=== PATIENT | male | born 1980 | race Hispanic/Latino ===

== ENCOUNTER 2017-12-17 15:46 | Outpatient (CLI) | payer BC, OTHER | END 2017-12-17 15:47 | disposition home or self-care (01) | LOC: DTY/OP 15:46 | PROVIDERS: ATTEND Surgery | DX: I10 Essential (primary) hypertension (principal) | CPT/HCPCS: 97802 ==

== ENCOUNTER 2018-02-06 16:15 | Inpatient (IN) | payer BC ==
[2018-02-18] MEDS ORDERED: Bupivacaine/Epinephrine 0.25% 30 ML VIAL ONE (11:19)
[2018-02-18] MEDS ORDERED: CEFAZOLIN 2 GM/50 ML BAG ONE (11:35)
[2018-02-18] MEDS ORDERED: Heparin 5,000 UNITS/ML VIAL ONE (11:35)
[2018-02-18] MEDS ORDERED: Fentanyl 100 MCG/2 ML VIAL ONE ×4 (11:38→14:32)
--- NOTE | 2018-02-18 13:19 | OP ---
DATE OF PROCEDURE: 02/18/2018 PREOPERATIVE DIAGNOSES: 1. Morbid obesity with a body mass index of 46. 2. Hypertension. POSTOPERATIVE DIAGNOSES: 1. Morbid obesity with a body mass index of 46. 2. Hypertension. PROCEDURE PERFORMED: 1. Laparoscopic sleeve gastrectomy with Wilkinson staple line reinforcements and 38 Kinyarwanda bougie. 2. EGD. SURGEON: Clyde Banegas M.D. ANESTHESIA: General. ESTIMATED BLOOD LOSS: Minimal. COMPLICATIONS: None. SPECIMEN: Stomach. FINDINGS: Normal postoperative EGD. PROCEDURE IN DETAIL: The patient was taken to the operating room and placed supine on the table. Af ter general anesthetic was obtained, the arms and legs are double strapped to bariatric table. The a bdomen was shaved, prepped, and draped in a sterile fashion. Left subcostal 5-mm Optiview trocar was placed in the usual fashion under direct vision. High-flow pneumoperitoneum was obtained. Left and right abdominal 12-mm ports as well as a right subcostal 5-mm port were placed under direct visualiz ation. A 5 mm incision was made at the xiphoid and Florinda was used to raise the liver off the GE junction. Short gastrics are taken down from a distance of 6 cm proximal to the pylorus all the way to the left jessica of the diaphragm. Left jessica, posterior fundus, angle of His was all completely diss ected as are all posterior adhesions. OG tube was removed and a 38 bougie was brought in and its tip left in the antrum of the stomach. Multiple loads of an Luke stapling device used to form the sl eeve. The first was a green load fired up at a distance of 6 cm proximal to the pylorus. Multiple l oads were then fired up along the bougie, stomach is completely transected at the angle of His. The stomach was removed from the left abdominal incision. This fascial defect is closed using GraNee nee dle 0 Vicryl tie. All port sites are infiltrated using local anesthetic. EGD scope was passed into the esophagus, stomach to the level of the duodenum without obstruction or stricture. There is no ai r leakage or bleeding along the staple line. EGD scope was used to decompress the stomach, it was pu lled and removed. The Florinda retractor was removed under direct visualization without bleeding. There is no bleeding on the staple line. All ports are removed under direct visualization without bl eeding. Pneumoperitoneum was let down. The Vicryl was used to close the fascial defect from left ab dominal incisions. All incisions were irrigated and closed using 4-0 Monocryl and Dermabond. The pa tient was en route to recovery in stable condition. All instrument counts, needle counts, lap counts were correct.
[2018-02-18] MEDS ORDERED: Promethazine HCl 25 MG/ML VIAL IM PRN ×3 (13:27→16:29)
[2018-02-18] MEDS ORDERED: HYDROmorphone 2 MG/ML VIAL SLOW IVP PRN (13:27)
[2018-02-18] MEDS ORDERED: Ondansetron HCl/PF 4 MG/2 ML Vial IVP PRN (13:27)
[2018-02-18] MEDS ORDERED: Promethazine HCl 25 MG/ML VIAL SLOW IVP PRN (13:27)
[2018-02-18] MEDS ORDERED: Meperidine HCl/PF 25 MG/ML VIAL SLOW IVP PRN (13:27)
[2018-02-18] MEDS ORDERED: HYDROmorphone 2 MG/ML VIAL ONE (13:29)
[2018-02-18] MEDS ORDERED: Meperidine HCl/PF 25 MG/ML VIAL ONE (13:41)
[2018-02-18] MEDS ORDERED: Lidocaine 1% PF 5 ML VIAL ONE (13:49)
[2018-02-18] MEDS ORDERED: PROPOFOL 200 MG/20 ML VIAL ONE (13:49)
[2018-02-18] MEDS ORDERED: Dexamethasone 20 MG/5 ML VIAL ONE (13:49)
[2018-02-18] MEDS ORDERED: Glycopyrrolate 0.2 MG/ML 5 ML SYRINGE ONE (13:49)
[2018-02-18] MEDS ORDERED: Ondansetron PF 4 MG/2 ML Vial ONE (13:49)
[2018-02-18] MEDS ORDERED: Naloxone HCl 0.4 mg/ml Vial IV PRN (13:51)
[2018-02-18] MEDS ORDERED: Ondansetron PF 4 MG/2 ML Vial IVP PRN ×2 (13:51→16:29)
[2018-02-18] MEDS ORDERED: diphenhydrAMINE 50 MG/ML VIAL IVP PRN ×2 (13:51→16:29)
[2018-02-18] MEDS ORDERED: diphenhydrAMINE 50 MG/ML VIAL IM PRN (13:51)
[2018-02-18] MEDS ORDERED: diphenhydrAMINE 25 MG CAP PO PRN (13:51)
[2018-02-18] MEDS ORDERED: HYDROmorphone 10 mg/100 ml CADD IVPB PRN (13:51)
[2018-02-18] MEDS ORDERED: Zolpidem Tartrate 5 MG TAB PO PRN (13:51)
[2018-02-18] MEDS ORDERED: Communication Order-Pharmacy FS SCH (14:00)
[2018-02-18] MEDS ORDERED: Morphine 4 MG/ML VIAL ONE (14:00)
[2018-02-18] MEDS ORDERED: D5 1/2 NS w/20 mEq KCL 1,000 ML ONE (15:16)
[2018-02-18] MEDS ORDERED: Dextrose 5% in Water 1,000 ML IV PRN (16:29)
[2018-02-18] MEDS ORDERED: Dextrose 50% Abboject 50 ML SYRINGE SLOW IVP PRN (16:29)
[2018-02-18] MEDS ORDERED: hydrALAZINE 20 MG/ML VIAL SLOW IVP PRN (16:29)
[2018-02-18 16:51] VITALS: BMI 43.0
[2018-02-18] MEDS ORDERED: Clopidogrel Bisulfate 75 MG TAB ONE (17:28)
[2018-02-18] MEDS: D5 1/2 NS w/20 mEq KCL 1,000 ML IV SCH ×2 (17:30→21:34)
[2018-02-18] MEDS: Acetaminophen 1,000 MG in Premix Bag 1 BAG IVPB SCH ×2 (17:31→21:34)
[2018-02-18] MEDS ORDERED: Enoxaparin Sodium 40 MG/0.4 ML SYRINGE SC SCH (21:00)
[2018-02-19] MEDS: Acetaminophen 1,000 MG in Premix Bag 1 BAG IVPB SCH ×2 (03:55→08:38)
[2018-02-19] MEDS: D5 1/2 NS w/20 mEq KCL 1,000 ML IV SCH (03:56)
[2018-02-19 05:36] LABS: #Lymphocytes 0.9 thou/uL (1.20-3.40); #Monocytes 0.7 thou/uL (0.11-0.59); #Neutrophils 9.3 thou/uL (1.40-6.50); %Basophils 0.1 % (0.0-1.0); %Eosinophils 0.1 % (0.0-10.0); %Lymphocytes 8.5 % (21.0-51.0); %Monocytes 6.4 % (0.0-10.0); %Neutrophils 84.8 % (42.0-75.0); Hemoglobin 14.6 g/dL (14.0-18.0); Mean Corpuscular HGB CONC 32.8 g/dL (32.0-36.0); Mean Corpuscular Hemoglobin 29.4 pg (27.0-31.0); Mean Corpuscular Volume 89.5 fL (78.0-98.0); Mean Platelet Volume 9.2 fL (7.4-10.4); Platelet Count 227 thou/uL (130-400); RBC Distribution Width 11.9 % (11.5-14.5); Red Blood Cell (RBC) Count 4.97 mill/uL (4.70-6.10)
[2018-02-19 05:47] LABS: Anion Gap 13 mmol/L (10-20); BUN (Urea Nitrogen) 9 mg/dL (8.9-20.6); Calc. Creatinine Clearance 185 mL/min (70-130); Calcium 9.5 mg/dL (7.8-10.44); Carbon Dioxide 30 mmol/L (22-29); Chloride 103 mmol/L (98-107); Estimated GFR-MDRD 79; Glucose 136 mg/dL (70-105); Potassium 4.6 mmol/L (3.5-5.1); Sodium 141 mmol/L (136-145)
[2018-02-19 08:33] VITALS: BP 118/74; TEMP 98.4
[2018-02-19] MEDS ORDERED: Losartan 25 MG TAB PO SCH (09:00)
[2018-02-19] MEDS ORDERED: Pantoprazole 40 MG VIAL IVP SCH (09:00)
[2018-02-19] MEDS: Hydrocodone-Acetamin 15 ML UDCUP PO PRN ×2 (10:36→10:39)
--- NOTE | 2018-02-19 20:18 | DIS ---
DATE OF ADMISSION: 02/18/2018 DATE OF DISCHARGE: 02/19/2018 ADMITTING DIAGNOSIS: Morbid obesity. DISCHARGE DIAGNOSIS: Morbid obesity. PROCEDURE: Laparoscopic sleeve gastrectomy by Dr. Banegas without complication. CONDITION AT DISCHARGE: Improved. STAFF: Dr. Banegas. HOSPITAL COURSE: On postop day 1, the patient is doing well and he is tolerating clears. Vital sign s are stable. He is being discharged home. Prescriptions already called into his pharmacy.
== END 2018-02-19 11:45 | disposition home or self-care (01) | DRG 621 ==
LOC: SURG A 02-18 10:00
PROVIDERS: ADMIT Surgery; ATTEND Surgery
PROC: 0DB64Z3 Excision of Stomach, Percutaneous Endoscopic Approach, Vertical (ICD-10-PCS; principal; 2018-02-18)
PROC: 0DJ08ZZ Inspection of Upper Intestinal Tract, Via Natural or Artificial Opening Endoscopic (ICD-10-PCS; 2018-02-18)
DX: E66.01 Morbid (severe) obesity due to excess calories (principal); Z68.42 Body mass index [BMI] 45.0-49.9, adult; I10 Essential (primary) hypertension; Z79.899 Other long term (current) drug therapy; M10.9 Gout, unspecified; Z87.891 Personal history of nicotine dependence
CPT/HCPCS: 36415; 80048; 85025; 88307; 88312; 94760; C9113; J0131; J1100; J1170; J1644; J1650; J2001; J2175; J2270; J2405; J2704; J3010

== ENCOUNTER 2018-02-06 16:24 | Outpatient (CLI) | payer BC ==
[2018-02-06 17:32] LABS: #Basophils 0.1 thou/uL (0.0-0.2); #Eosinphils 0.3 thou/uL (0.0-0.7); #Lymphocytes 2.4 thou/uL (1.20-3.40); #Monocytes 0.8 thou/uL (0.11-0.59); #Neutrophils 5.5 thou/uL (1.40-6.50); %Basophils 0.9 % (0.0-1.0); %Lymphocytes 26.7 % (21.0-51.0); %Neutrophils 60.5 % (42.0-75.0); Mean Corpuscular HGB CONC 32.7 g/dL (32.0-36.0); Mean Corpuscular Hemoglobin 29.4 pg (27.0-31.0); Mean Corpuscular Volume 89.8 fL (78.0-98.0); Mean Platelet Volume 8.6 fL (7.4-10.4); Platelet Count 242 thou/uL (130-400); RBC Distribution Width 11.8 % (11.5-14.5); Red Blood Cell (RBC) Count 5.12 mill/uL (4.70-6.10)
[2018-02-06 17:39] LABS: Hemoglobin A1c 5.1 % (4.0-6.0)
[2018-02-06 18:00] LABS: ALT (SGPT) 21 U/L (8-55); AST (SGOT) 18 U/L (5-34); Albumin 4.2 g/dL (3.5-5.0); Alkaline Phosphatase 83 U/L (40-150); Anion Gap 12 mmol/L (10-20); BUN (Urea Nitrogen) 18 mg/dL (8.9-20.6); Bilirubin, Direct 0.1 mg/dL (0.1-0.3); Bilirubin, Total 0.5 mg/dL (0.2-1.2); Calc. Creatinine Clearance 0 mL/min (70-130); Calcium 9.3 mg/dL (7.8-10.44); Carbon Dioxide 26 mmol/L (22-29); Chloride 103 mmol/L (98-107); Estimated GFR-MDRD 80; Globulin 2.9 g/dL (2.4-3.5); Glucose 105 mg/dL (70-105); Potassium 4.1 mmol/L (3.5-5.1); Protein, Total 7.1 g/dL (6.0-8.3); Sodium 137 mmol/L (136-145)
--- NOTE | 2018-02-06 19:06 | RAD ---
PA AND LATERAL CHEST X-RAY 02/06/18 HISTORY: Preoperative evaluation. COMPARISON: None available. FINDINGS: The cardiac silhouette and pulmonary vasculature are within normal limits. The lungs are clear. Frederick us structures are intact. IMPRESSION: No acute cardiopulmonary process. POS: MEL
--- NOTE | 2018-02-07 17:01 | EKG ---
Test Reason : Blood Pressure : / mmHG Vent. Rate : 072 BPM Atrial Rate : 072 BPM P-R Int : 186 ms QRS Dur : 086 ms QT Int : 356 ms P-R-T Axes : 067 -29 016 degrees QTc Int : 389 ms Normal sinus rhythm Low voltage QRS Early repolarization Cannot rule out Anterior infarct (cited on or before 13-JAN-2011) Abnormal ECG When compared with ECG of 13-JAN-2011 08:19, No significant change was found Confirmed by DR. Joanna ZULETA ([id number]) on 02/07/2018 5:01:15 PM Referred By: SHORTY Confirmed By:DR. Joanna ZULETA
== END 2018-02-06 16:25 | disposition home or self-care (01) ==
LOC: LABBT 16:24
PROVIDERS: ATTEND Surgery
DX: Z01.818 Encounter for other preprocedural examination (principal); E66.01 Morbid (severe) obesity due to excess calories
CPT/HCPCS: 71046; 80053; 80076; 83036; 85025; 93005; 93010

== ENCOUNTER 2018-03-21 17:54 | Emergency (ER) | payer BC ==
[2018-03-21 18:46] LABS: #Basophils 0.1 thou/uL (0.0-0.2); #Eosinphils 0.1 thou/uL (0.0-0.7); #Lymphocytes 2.4 thou/uL (1.20-3.40); #Monocytes 0.4 thou/uL (0.11-0.59); #Neutrophils 4.8 thou/uL (1.40-6.50); %Basophils 0.9 % (0.0-1.0); %Eosinophils 1.5 % (0.0-10.0); %Lymphocytes 30.8 % (21.0-51.0); %Monocytes 5.5 % (0.0-10.0); %Neutrophils 61.4 % (42.0-75.0); Hemoglobin 14.3 g/dL (14.0-18.0); Mean Corpuscular HGB CONC 31.5 g/dL (32.0-36.0); Mean Corpuscular Hemoglobin 28.1 pg (27.0-31.0); Mean Corpuscular Volume 89.3 fL (78.0-98.0); Mean Platelet Volume 11.9 fL (7.4-10.4); Platelet Count 171 thou/uL (130-400); RBC Distribution Width 12.1 % (11.5-14.5); White Blood Cell (WBC) Count 7.8 thou/uL (4.8-10.8)
[2018-03-21 18:53] LABS: PTT 29.6 SEC (22.9-36.1); Prothrombin Time 13.5 SEC (12.0-14.7)
[2018-03-21 19:02] LABS: ALT (SGPT) 38 U/L (8-55); AST (SGOT) 21 U/L (5-34); Albumin 4.1 g/dL (3.5-5.0); Alkaline Phosphatase 79 U/L (40-150); Anion Gap 14 mmol/L (10-20); BUN (Urea Nitrogen) 15 mg/dL (8.9-20.6); Bilirubin, Total 0.4 mg/dL (0.2-1.2); Calc. Creatinine Clearance 0 mL/min (70-130); Calcium 9.5 mg/dL (7.8-10.44); Carbon Dioxide 26 mmol/L (22-29); Chloride 105 mmol/L (98-107); Estimated GFR-MDRD Greater than 90; Globulin 2.9 g/dL (2.4-3.5); Glucose 132 mg/dL (70-105); Potassium 3.7 mmol/L (3.5-5.1); Sodium 141 mmol/L (136-145)
--- NOTE | 2018-03-21 20:42 | ULT ---
LEFT LOWER EXTREMITY VENOUS DOPPLER 03/21/18 PROVIDED CLINICAL HISTORY: Left lower extremity pain. FINDINGS: Morales scale and color doppler sonography with spectral analysis was performed of the left common femor al, femoral, popliteal, posterior tibial, greater saphenous and profunda femoral veins, demonstrating a normal sonographic appearance to each. IMPRESSION: No sonographic evidence for left lower extremity deep venous thrombosis. POS: KERA
== END 2018-03-21 19:30 | disposition home or self-care (01) ==
LOC: SCSER 17:54
DX: M79.605 Pain in left leg (principal); I10 Essential (primary) hypertension; F32.9 Major depressive disorder, single episode, unspecified; Z79.899 Other long term (current) drug therapy
CPT/HCPCS: 36415; 80053; 85025; 85610; 85730; 86900; 86901

== ENCOUNTER 2024-05-02 08:43 | Outpatient (CLI) | payer BC ==
[2024-05-02] MEDS ORDERED: Iopamidol 370 76% 100 ML VIAL ONE (12:30)
== END 2024-05-02 08:44 | disposition home or self-care (01) ==
LOC: CT 08:43
PROVIDERS: ATTEND Surgery
DX: R10.33 Periumbilical pain (principal)
CPT/HCPCS: 74177; Q9967